=== PATIENT | female | born 1940 | race Caucasian/White ===

== ENCOUNTER → 2021-04-02 | Outpatient (CLI) | payer OTHER, MEDICARE ==
[~2021-04-02] MED LIST: ASA81BEC PO; COREG6.25 MG PO; COZAAR 25 MG TA25 M2 PO; LIPITOR 20 MG T20 M1 PO; MIRAPEX0.25 MG PO; PEPCID20 MG PO; PRESERVISION A1 EAC2 PO; PROTONIX40 M4 PO; VITAMIN D3125 MC2 PO; WELLBUTRIN XL300 MG PO
== END ==
LOC: LAB 05:39
PROVIDERS: ATTEND Student in an Organized Health Care Education/Training Program
DX: Z01.812 Encounter for preprocedural laboratory examination (principal); Z20.822 Contact with and (suspected) exposure to COVID-19